=== PATIENT | male | born 1930 | race Caucasian/White ===

== ENCOUNTER → 2019-03-09 | Outpatient (CLI) | payer MEDICARE, MEDICAID | LOC: LL.DI 15:37 | PROVIDERS: ATTEND Family Medicine | DX: M25.561 Pain in right knee (principal); M25.461 Effusion, right knee; Z96.651 Presence of right artificial knee joint | CPT/HCPCS: 73560-RT ==

== ENCOUNTER 2019-03-31 11:39 | Emergency (ER) | payer OTHER ==
--- NOTE | 2019-03-31 11:52 | EDM.PDOC ---
ED HPI GENERAL MEDICAL PROBLEM - General Chief Complaint: General Stated Complaint: Critical Lab Results Time Seen by Provider: 03/31/19 11:45 Source of Information: Reports: Family (Daughter and Claudia), Assisted Records, Old Records ([facility] EMR. No paper hospital chart available.) History Limitations: Reports: Altered Mental Status - History of Present Illness INITIAL COMMENTS - FREE TEXT/NARRATIVE: The patient was brought to the emergency room via transport vehicle from [facility] in [place] for evaluation of progressive anemia since 01/28 with blood work ordered by his regular provider, Sri Reid MD at [facility] in [place]. The patient's hemoglobin was 6.7 with platelets of 111,000 and elevated INR at the detention of 6. The patient's Coumadin was put on hold yesterday with no other therapy to this point. Repeat blood work today prior to arrival to our facility showed progressive anemia with hemoglobin of 5.6, MCV 77.3, and platelets of 97,000. 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 He apparently has had some melanotic stools and mild gross hematochezia during the last month with possible progression during the last few days. He has also had some loose black stools including 3 yesterday with last bowel movement at 19:00 hours by his history. No recent history of abdominal pain, heartburn, nausea, or any food intolerance. No apparent recent chest pain or other anginal-type symptoms. The patient also denies any recent fever, cough, wheezing, dyspnea, etc.. Onset: Gradual, Other (As above) Duration: Week(s):, Getting Worse, Other (No pain) Location: Reports: Other (No pain) Improves with: Reports: None Worsens with: Reports: None Context: Reports: Other (As above). Denies: Sick Contact, Trauma Associated Symptoms: Reports: Confusion (Stable baseline). Denies: Chest Pain, Cough, Diaphoresis, Fever/Chills, Headaches, Loss of Appetite, Malaise, Nausea/ Vomiting, Rash, Shortness of Breath, Syncope, Weakness Treatments LOAD OUT PERSON: Reports: Other (see below) (None) - Related Data Allergies Allergy/AdvReac Type Severity Reaction Status Date / Time lisinopril [From Zestril] Allergy Other Verified 03/31/19 12:59 losartan Allergy Other Verified 03/31/19 12:59 propoxyphene Allergy Other Verified 03/31/19 12:59 Home Meds: Home Meds Cholecalciferol (Vitamin D3) [Vitamin D3] 2,000 unit PO DAILY@1000 02/06/17 [ History] Finasteride 5 mg PO DAILY@1000 02/06/17 [History] Gabapentin [Neurontin] 200 mg PO DAILY@,,02/06/17 [History] Methyl Salicylate/Menthol [Thera-Gesic Analgesic] 1 applic TOP BEDTIME 02/06/17 [History] Metoprolol Succinate 100 mg PO DAILY@1000 02/06/17 [History] Nitroglycerin 0.4 mg SL ASDIRECTED 02/06/17 [History] Sertraline [Zoloft] 100 mg PO BEDTIME 02/06/17 [History] Simvastatin [Zocor] 20 mg PO BEDTIME 02/06/17 [History] amLODIPine [Norvasc] 10 mg PO DAILY@1000 02/06/17 [History] predniSONE [Prednisone] 5 mg PO DAILY@1000 02/06/17 [History] traZODone 25 mg PO BEDTIME 02/06/17 [History] Diclofenac Sodium [Voltaren 1% Gel] 1 applic TOP BID@02/25/17 [History] Acetaminophen [Tylenol Extra Strength] 1,000 mg PO TID@08,14,03/31/19 [ History] Donepezil [Aricept] 5 mg PO BEDTIME 03/31/19 [History] Doxazosin [Cardura] 4 mg PO BEDTIME 03/31/19 [History] Furosemide [Lasix] 40 mg PO DAILY@1000 03/31/19 [History] Hydrocortisone [Hydrocortisone 1% Crm] 1 applic TOP ASDIRECTED PRN 03/31/19 [ History] Levothyroxine [Synthroid] 100 mcg PO DAILY@1000 03/31/19 [History] Loperamide HCl [Imodium A-D] 2 - 4 mg PO ASDIRECTED PRN MDD 8 capsules in 24 hours 03/31/19 [History] Methyl Salicylate/Menthol [Thera-Gesic Analgesic] 1 applic TOP ASDIRECTED PRN [History] Naproxen Sodium [Aleve] 220 mg PO DAILY 03/31/19 [History] Naproxen Sodium [Aleve] 220 mg PO QPM PRN 03/31/19 [History] Omeprazole 20 mg PO DAILY@1000 03/31/19 [History] Oxymetazoline [Afrin Original 0.05% Nasal [place]] 1 sprays NASBOTH ASDIRECTED PRN 03/31/19 [History] Potassium Chloride 20 meq PO BID@,03/31/19 [History] Propylene Glycol/PEG 400/Pf [Systane 0.3-0.4% Eye Drop] 1 drop EYEBOTH BID@, 20 03/31/19 [History] Propylene Glycol/PEG 400/Pf [Systane 0.3-0.4% Eye Drop] 1 drop EYEBOTH Q4H PRN 03/31/19 [History] glipiZIDE [Glucotrol] 10 mg PO DAILY@1600 03/31/19 [History] Past Medical History HEENT History: Reports: Allergic Rhinitis, Cataract, Hard of Hearing, Impaired Vision, Other (See Below) Other HEENT History: Patient wears glasses. Moderate bilateral presbycusis. Dry eye syndrome. Drusen bilaterally. Cardiovascular History: Reports: Aneurysm, Blood Clots/VTE/DVT, CAD, Cardiomyopathy, Heart Failure, High Cholesterol, Hypertension, IN, PTCA, Stents Other Cardiovascular History: Pulmonary embolism as below. Previous history of aortic dissectionlocation unknown. Gastrointestinal History: Reports: Chronic Constipation, Chronic Diarrhea, Diverticulosis, GERD, Hemorrhoids, Other (See Below) Other Gastrointestinal History: Alternating constipation and diarrhea. Diverticulosis with previous episode of diverticulitis. Dysphagia. Genitourinary History: Reports: BPH, Chronic Renal Insuffiency, Diabetic Nephropathy, Prostate Disorder, Renal Calculus, Urinary Incontinence, Other ( See Below) Other Genitourinary History: Prostate cancer as below. Musculoskeletal History: Reports: Arthritis, Back Pain, Chronic, Gout, Neck Pain , Chronic, Osteoarthritis, Other (See Below) Other Musculoskeletal History: History of spinal stenosis. Radiculopathy from arthritic disease. Neurological History: Reports: Alzheimers Disease, Neuropathy, Diabetic, Neuropathy, Peripheral, Other (See Below) Other Neuro History: Recurrent falls. Psychiatric History: Reports: Alzheimers Disease, Anxiety, Dementia, Depression , Other (See Below) Other Psychiatric History: Chronic insomnia. Endocrine/Metabolic History: Reports: Diabetes, Type II, Hypothyroidism, Obesity /BMI 30+, Vitamin D Deficiency, Other (See Below). Denies: Diabetes, Type I, Diabetes Mellitus, Type 3c, IDDM Other Endocrine/Metabolic History: Hyperkalemia. Hematologic History: Reports: Anemia, Other (See Below) Other Hematologic History: Microcytosis. Thrombocytopenia. Oncologic (Cancer) History: Reports: Prostate, Other (See Below) Other Oncologic History: Prostate cancer with probable radioactive seed therapy based on x-rays. Dermatologic History: Reports: Seborrheic Dermatitis, Other (See Below) Other Dermatologic History: Seborrheic keratosis. Actinic keratosis. Purpura. - Infectious Disease History Infectious Disease History: Reports: Chicken Pox, Measles, Mumps - Past Surgical History HEENT Surgical History: Reports: Cataract Surgery, Oral Surgery, Other (See Below) Other HEENT Surgeries/Procedures: Multiple teeth extractions with complete upper dentures and patient not having any partial lowers. Bilateral cataract surgery. Cardiovascular Surgical History: Reports: Coronary Artery Stent, Percutaneous Transluminal Angioplasty, Other (See Below) Other Cardiovascular Surgeries/Procedures: PTCA/stent 2. GI Surgical History: Reports: Other (See Below) Other GI Surgeries/Procedures: Hemorrhoidectomy by patient history. Musculoskeletal Surgical History: Reports: Hip Replacement, Joint Replacement, Knee Replacement, Other (See Below) Other Musculoskeletal Surgeries/Procedures:: Right hip TEP. Bilateral total knee arthroplasty. Multiple previous back surgeries by patient history? Social & Family History - Caffeine Use Caffeine Use: Reports: Soda ED ROS GENERAL - Review of Systems Review Of Systems: Comprehensive ROS is negative, except as noted in HPI. ED EXAM, GENERAL - Physical Exam Exam: See Below Exam Limited By: No Limitations General Appearance: Alert, WD/WN, No Apparent Distress Eye Exam: Bilateral Eye: EOMI, Normal Inspection (No nystagmus. Patient wearing glasses), PERRL Ears: Normal External Exam, Normal Canal, Normal TMs, Hearing Loss (Moderate bilateral presbycusis). No: Hearing Grossly Normal Nose: Normal Inspection, Normal Mucosa, No Blood Throat/Mouth: Normal Lips, Normal Gums, Normal Oropharynx, Normal Voice, No Airway Compromise. No: Normal Teeth (Complete Bleed absent upper dentition with multiple missing teeth lowers. Patient does not have his dentures today.), Dysphagia, Inflammation, Perioral Cyanosis Head: Atraumatic, Normocephalic. No: Facial Swelling, Facial Tenderness, Sinus Tenderness Neck: Supple, Non-Tender, Full Range of Motion, Carotid Bruit (Mild bilateral carotid bruits). No: Lymphadenopathy (L), Lymphadenopathy (R), Thyromegaly Respiratory/Chest: No Respiratory Distress, Lungs Clear, Normal Breath Sounds, No Accessory Muscle Use, Chest Non-Tender. No: Pleural Rub, Retractions Cardiovascular: Normal Peripheral Pulses, Regular Rate, Rhythm, No Gallop, No JVD, No Murmur, No Rub. No: No Edema (Dependent edema as below), Gallop/S3, Gallop/S4, Friction Rub Peripheral Pulses: 2+: Radial (L), Radial (R), Dorsalis Pedis (L), Dorsalis Pedis (R) GI/Abdominal: Non-Tender, No Organomegaly, No Abnormal Bruit, No Mass, Distended (Borderline), Abnormal Bowel Sounds (Somewhat increased, however not high-pitched). No: Guarding, Rebound, Tender, Hernia, Mass (Male) Exam: Deferred Rectal (Males) Exam: Black Stool, Bloody Stool (Mild to moderate), Heme + Stool , Hemorrhoids (Moderate grade 3 internal/external hemorrhoids), Mass (1 cm possible rectal polyp by digital exam and anoscope ). No: Rectal Fissure, Tenderness (No Ernesto space tenderness) Back Exam: Normal Inspection, Full Range of Motion, Other (Mild kyphosis). No: CVA Tenderness (L), CVA Tenderness (R), Muscle Spasm Extremities: Normal Range of Motion, Non-Tender, Normal Capillary Refill, Pedal Edema (+1-+2 bilateral pitting pedal/pretibial edema), Pallor (Moderate generalized), Other (Moderate Ecchymosis in the arms and hands bilaterally secondary to previous blood draws). No: Katy's Sign Neurological: Normal Reflexes (Negative Babinski's), Confused (Stable Baseline organic brain syndrome by history) Psychiatric: Normal Affect, Normal Mood Skin Exam: Ecchymosis, Pallor (Moderate). No: Diaphoretic, Wound/Incision Lymphatic: No Adenopathy Course - Vital Signs Last Recorded V/S: Last Vital Signs Temp 35.8 C 03/31/19 15:10 Pulse 63 03/31/19 15:10 Resp 18 03/31/19 15:10 BP 123/51 L 03/31/19 15:10 Pulse Ox 92 L 03/31/19 13:40 Vital Signs - 24 hr 03/31/19 03/31/19 03/31/19 11:46 11:48 12:15 Temperature Temperature [ 36.0 C 35.9 C Temporal] Pulse, 71 67 74 Peripheral [ Left Pulse Oximetry] Respiratory 18 18 18 Rate Blood Pressure 116/48 L 139/56 L 118/52 L [Left Upper Arm ] O2 Sat by Pulse 98 97 97 Oximetry 03/31/19 03/31/19 03/31/19 13:00 13:14 13:30 Temperature Temperature [ 35.9 C Temporal] Pulse, 68 65 60 Peripheral [ Left Pulse Oximetry] Respiratory 20 20 20 Rate Blood Pressure 128/64 130/51 L 125/51 L [Left Upper Arm ] O2 Sat by Pulse 93 L 95 88 L Oximetry 03/31/19 03/31/19 03/31/19 13:40 13:41 13:53 Temperature 36.0 C 35.9 C Temperature [ Temporal] Pulse, 62 62 64 Peripheral [ Left Pulse Oximetry] Respiratory 16 15 Rate Blood Pressure 116/45 L 103/37 L [Left Upper Arm ] O2 Sat by Pulse 92 L Oximetry 03/31/19 03/31/19 03/31/19 14:08 14:19 14:37 Temperature 36.4 C 36.4 C 35.8 C Temperature [ Temporal] Pulse, 67 65 64 Peripheral [ Left Pulse Oximetry] Respiratory 16 16 18 Rate Blood Pressure 128/47 L 131/47 L 100/54 L [Left Upper Arm ] O2 Sat by Pulse Oximetry 03/31/19 15:10 Temperature 35.8 C Temperature [ Temporal] Pulse, 63 Peripheral [ Left Pulse Oximetry] Respiratory 18 Rate Blood Pressure 123/51 L [Left Upper Arm ] O2 Sat by Pulse Oximetry - Orders/Labs/Meds Orders: Active Orders 24 hr Category Date Time Status Cardiac Monitoring [RC] . DIRECTED Care 03/31/19 11:50 Active Peripheral IV Care [RC] . DIRECTED Care 03/31/19 11:55 Active Nothing Per Oral Diet [DIET] Diet 03/31/19 Breakfast Active Abdomen Series w Chest 1V [CR] Stat Exams 03/31/19 11:55 Taken Sodium Chloride 0.9% [Normal Saline] 250 ml Med 03/31/19 13:15 Active IV ASDIRECTED Sodium Chloride 0.9% [Saline Flush] Med 03/31/19 11:55 Active 10 ml FLUSH ASDIRECTED PRN Obtain Past Medical Record [OM.PC] Urgent Oth 03/31/19 11:55 Active Peripheral IV Insertion Adult [OM.PC] Stat Oth 03/31/19 11:55 Ordered Transfuse RBC [Transfuse Red Blood Cells] [COMM] Oth 03/31/19 11:59 Ordered Routine Resuscitation Status Stat Resus Stat 03/31/19 11:55 Ordered Medication Orders Sodium Chloride (Normal Saline) 250 mls @ 50 mls/hr IV ASDIRECTED MILLA Last Admin: 03/31/19 13:38 Dose: 50 mls/hr Sodium Chloride (Saline Flush) 10 ml FLUSH ASDIRECTED PRN PRN Reason: Keep Vein Open Labs: Laboratory Tests 03/31/19 03/31/19 03/31/19 Range/Units 12:00 12:00 12:00 PT 44.5 H (9.5-12.0) SEC INR 4.1 APTT 37.8 H (21.0-31.3) SEC Sodium 144 (136-145) mmol/L Potassium 4.3 (3.5-5.1) mmol/L Chloride 107 (98-107) mmol/L Carbon Dioxide 26.3 (21.0-32.0) mmol/L BUN 32 H (7-18) mg/dL Creatinine 1.66 H (0.51-1.17) mg/dL Est Cr Clr Drug Dosing 26.76 mL/min Estimated GFR (MDRD) 39 mL/min Glucose 170 H (74-106) mg/dL Lactic Acid (0.4-2.0) mmol/L Uric Acid 10.4 H (2.6-7.2) mg/dL Calcium 8.5 (8.5-10.1) mg/dL Magnesium 1.7 L (1.8-2.4) mg/dL Total Bilirubin 0.8 (0.2-1.0) mg/dL AST 18 (15-37) U/L ALT 23 (12-78) U/L Alkaline Phosphatase 63 (46-116) IU/L Total Protein 6.2 L (6.4-8.2) g/dL Albumin 3.5 (3.4-5.0) g/dL Amylase 59 (25-115) U/L Lipase 154 (73-393) U/L Blood Type Gel Antibody Screen Crossmatch 03/31/19 03/31/19 Range/Units 12:00 12:00 PT (9.5-12.0) SEC INR APTT (21.0-31.3) SEC Sodium (136-145) mmol/L Potassium (3.5-5.1) mmol/L Chloride (98-107) mmol/L Carbon Dioxide (21.0-32.0) mmol/L BUN (7-18) mg/dL Creatinine (0.51-1.17) mg/dL Est Cr Clr Drug Dosing mL/min Estimated GFR (MDRD) mL/min Glucose (74-106) mg/dL Lactic Acid 1.9 (0.4-2.0) mmol/L Uric Acid (2.6-7.2) mg/dL Calcium (8.5-10.1) mg/dL Magnesium (1.8-2.4) mg/dL Total Bilirubin (0.2-1.0) mg/dL AST (15-37) U/L ALT (12-78) U/L Alkaline Phosphatase (46-116) IU/L Total Protein (6.4-8.2) g/dL Albumin (3.4-5.0) g/dL Amylase (25-115) U/L Lipase (73-393) U/L Blood Type O POSITIVE Gel Antibody Screen Negative Crossmatch See Detail Copies of CBC results from 03/30 and 03/31 have also been submitted. Meds: Medications Generic Name Dose Route Start Last Admin Trade Name Freq PRN Reason Stop Dose Admin Sodium Chloride 250 mls @ 50 mls/hr 03/31/19 13:15 03/31/19 13:38 Normal Saline IV 50 mls/hr ASDIRECTED MILLA Administration Sodium Chloride 10 ml 03/31/19 11:55 Saline Flush FLUSH ASDIRECTED PRN Keep Vein Open Discontinued Medications Generic Name Dose Route Start Last Admin Trade Name Freq PRN Reason Stop Dose Admin Famotidine 40 mg 03/31/19 11:55 03/31/19 12:28 Pepcid IVPUSH 03/31/19 11:56 40 mg ONETIME ONE Administration Phytonadione 10 mg/ Sodium 51 mls @ 100 mls/hr 03/31/19 11:58 03/31/19 12:10 Chloride IV 03/31/19 12:28 100 mls/hr NOW ONE Administration Pantoprazole Sodium 40 mg 03/31/19 11:55 03/31/19 12:28 Protonix Iv IVPUSH 03/31/19 11:56 40 mg ONETIME ONE Administration - Radiology Interpretation Free Text/Narrative:: youth nutritional monitor showed normal sinus rhythm with heart rate in the high 50s to 60s with no ectopy, arrhythmia, etc. Acute abdominal x-rays showed some borderline pulmonary obstructive disease with mild prominence of the proximal aortic arch but no significant CHF, cardiomegaly, pulmonary infiltrates, pneumothorax, free air, fluid levels, ileus , obstruction, etc. Moderate osteoarthritic changes and mild scoliosis noted in the spine. Mild aortic valve calcification. Status post right hip TEP. Probable radioactive seeds in the prostate. Departure - Departure Time of Disposition: 15:40 Disposition: DC/Tfer to Acute Hospital 02 Condition: Fair Clinical Impression: Lower GI bleed, Diverticulosis, Peptic reflux disease, Thrombocytopenia, Organic brain syndrome (chronic), Renal insufficiency Coronary artery disease Qualifiers: Coronary Disease-Associated Artery/Lesion type: [place] artery [place] vs. transplanted heart: [place] heart Associated angina: without angina Qualified Code(s): I25.10 - Atherosclerotic heart disease of [place] coronary artery without angina pectoris Hypertension Qualifiers: Hypertension type: essential hypertension Qualified Code(s): I10 - Essential ( primary) hypertension Osteoarthritis Qualifiers: Osteoarthritis location: multiple joints Osteoarthritis type: primary Qualified Code(s): M15.0 - Primary generalized (osteo)arthritis Diabetes mellitus Qualifiers: Diabetes mellitus type: type 2 Diabetes mellitus long-term insulin use: without long term care administrator use Diabetes mellitus complication status: with kidney complications Diabetes mellitus complication detail: with chronic kidney disease Chronic kidney disease stage: stage 3 (moderate) Qualified Code(s): E11.22 - Type 2 diabetes mellitus with diabetic chronic kidney disease - Discharge Information *PRESCRIPTION DRUG MONITORING PROGRAM REVIEWED*: Not Applicable *COPY OF PRESCRIPTION DRUG MONITORING REPORT IN PATIENT [place]: Not Applicable Referrals: Sheets-Sri Kaye MD [Primary Care Provider] - Forms: ED Department Discharge, Interfacility Transfer [facility] Sepsis Event Note - Evaluation Sepsis Screening Result: No Definite Risk - Focused Exam Vital Signs: Vital Signs Temp Temp Pulse Resp BP Pulse Ox 03/31/19 15:10 35.8 C 63 18 123/51 L 03/31/19 14:37 35.8 C 64 18 100/54 L 03/31/19 14:19 36.4 C 65 16 131/47 L 03/31/19 14:08 36.4 C 67 16 128/47 L 03/31/19 13:53 35.9 C 64 15 103/37 L 03/31/19 13:41 36.0 C 62 16 116/45 L 03/31/19 13:40 62 92 L 03/31/19 13:30 35.9 C 60 20 125/51 L 88 L 03/31/19 13:14 65 20 130/51 L 95 03/31/19 13:00 68 20 128/64 93 L 03/31/19 12:15 74 18 118/52 L 97 03/31/19 11:48 35.9 C 67 18 139/56 L 97 03/31/19 11:46 36.0 C 71 18 116/48 L 98 Date Exam was Performed: 03/31/19 Time Exam was Performed: 15:48 - Problem List & Annotations (1) Lower GI bleed SNOMED Code(s): 60134022 Code(s): K92.2 - GASTROINTESTINAL HEMORRHAGE, UNSPECIFIED Status: Acute Priority: High Current Visit: No Onset Date: ~03/30/19 Annotation/Comment: : Progressive anemia and thrombocytopenia during the last 24 hours with exact source unknown. 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 No bleeding from this site, however. Note discontinuation of Coumadin yesterday secondary to his anemia and elevated INR, however patient is also on chronic prednisone, topical Voltaren, and additional Aleve therapy. High-dose IV Pepcid and IV Protonix given as GI prophylaxis on arrival. Approval for aggressive therapy was his obtained from the patient's daughter during telephone consultation shortly after patient's arrival to this facility. Initiated high-dose IV vitamin K, 1 unit of a frozen plasma, and an additional unit of packed red blood cells during his care and subsequent transfer as below. Telephone consultation initially with the [facility] at 13:20 hours and then again at 13:[address] Rangel, hospitalist, using patient transfer secondary to the severity of the illness. Their care coordinatorr, Katerine, does approve coverage of patient transfer to [place] and for further hospitalization. Subsequent telephone consultation with [facility] at 13: 33 hours and 13:41 hours, including Dr. Mc, hospitalist, who does accept the patient for direct admission, with no further treatment recommendations given. Ambulance transfer with director of housing and energy services accompaniment. Note additional telephone consultation at 14:35 hours with his daughter and POA once again informing her of treatment plan. She wishes to discuss further interventions, including possible colonoscopy, etc. with other family members at this time. Vital Signs and clinical exam were stable at time of patient transfer. (2) Peptic reflux disease SNOMED Code(s): 548836289 Code(s): K21.9 - GASTRO-ESOPHAGEAL REFLUX DISEASE WITHOUT ESOPHAGITIS Status: Chronic Priority: Medium Current Visit: Yes Annotation/Comment:: As above. Despite chronic prednisone, Aleve, and topical chart no direct indication of upper GI bleed (3) Coronary artery disease SNOMED Code(s): 30256553 Code(s): I25.10 - ATHSCL HEART DISEASE OF [place] CORONARY ARTERY W/O ANG PCTRS Status: Chronic Priority: Medium Current Visit: Yes Annotation/ Comment:: No chest pain or anginal type symptoms. Note status post previous PTCA /stent 2. In addition, note previous history of aortic dissection with specifics unknown including type of treatment, location of aneurysm, etc. Qualifiers: Coronary Disease-Associated Artery/Lesion type: [place] artery [place] vs. transplanted heart: [place] heart Associated angina: without angina Qualified Code(s): I25.10 - Atherosclerotic heart disease of [place] coronary artery without angina pectoris (4) Diverticulosis SNOMED Code(s): 349076374 Code(s): K57.90 - DVRTCLOS OF INTEST, PART UNSP, W/O PERF OR ABSCESS W/O BLEED Status: Chronic Priority: Medium Current Visit: No Annotation/ Comment:: No history of diverticulitis, however no leukocytosis or fever at this time. Possible source of GI bleed as above? Possible rectal carcinoma as above. (5) Hypertension SNOMED Code(s): 61331811 Code(s): I10 - ESSENTIAL (PRIMARY) HYPERTENSION Status: Chronic Priority : Medium Current Visit: Yes Annotation/Comment:: Stable in the emergency room. Continue to observe closely secondary to GI bleed as above. Qualifiers: Hypertension type: essential hypertension Qualified Code(s): I10 - Essential (primary) hypertension (6) Organic brain syndrome (chronic) SNOMED Code(s): 488616542 Code(s): F09 - UNSP MENTAL DISORDER DUE TO KNOWN PHYSIOLOGICAL CONDITION Status: Chronic Priority: Medium Current Visit: No Annotation/Comment:: Stable by history. (7) Osteoarthritis SNOMED Code(s): 904927180 Code(s): M19.90 - UNSPECIFIED OSTEOARTHRITIS, UNSPECIFIED SITE Status: Chronic Priority: Medium Current Visit: Yes Annotation/Comment:: Stable by history with additional history of gout however no recent gout attacks. Qualifiers: Osteoarthritis location: multiple joints Osteoarthritis type: primary Qualified Code(s): M15.0 - Primary generalized (osteo)arthritis (8) Thrombocytopenia SNOMED Code(s): 111572581 Code(s): D69.6 - THROMBOCYTOPENIA, UNSPECIFIED Status: Acute Priority: High Current Visit: No Onset Date: ~03/30/19 Annotation/Comment:: As above (9) Diabetes mellitus SNOMED Code(s): 87190239 Code(s): E11.9 - TYPE 2 DIABETES MELLITUS WITHOUT COMPLICATIONS Status: Chronic Priority: Medium Current Visit: Yes Annotation/Comment:: Stable by history. Qualifiers: Diabetes mellitus type: type 2 Diabetes mellitus long term care administrator insulin use: without long term care administrator use Diabetes mellitus complication status: with kidney complications Diabetes mellitus complication detail: with chronic kidney disease Chronic kidney disease stage: stage 3 (moderate) Qualified Code(s): E11.22 - Type 2 diabetes mellitus with diabetic chronic kidney disease; N18.3 - Chronic kidney disease, stage 3 (moderate) (10) Renal insufficiency SNOMED Code(s): 989578292, 610906843 Code(s): N28.9 - DISORDER OF KIDNEY AND URETER, UNSPECIFIED Status: Chronic Priority: Medium Current Visit: Yes Annotation/Comment:: Stable per review of previous medical records. Note diabetic nephropathy. - Problem List Review Problem List Initiated/Reviewed/Updated: Yes - My Orders Last 24 Hours: My Active Orders 03/31/19 11:50 Cardiac Monitoring [RC] . DIRECTED 03/31/19 11:55 Peripheral IV Care [RC] . DIRECTED Abdomen Series w Chest 1V [CR] Stat Sodium Chloride 0.9% [Saline Flush] 10 ml FLUSH ASDIRECTED PRN Obtain Past Medical Record [OM.PC] Urgent Peripheral IV Insertion Adult [OM.PC] Stat Resuscitation Status Stat 03/31/19 11:59 Transfuse RBC [Transfuse Red Blood Cells] [COMM] Routine 03/31/19 13:15 Sodium Chloride 0.9% [Normal Saline] 250 ml IV ASDIRECTED 03/31/19 Breakfast Nothing Per Oral Diet [DIET] - Assessment/Plan Last 24 Hours: My Active Orders 03/31/19 11:50 Cardiac Monitoring [RC] . DIRECTED 03/31/19 11:55 Peripheral IV Care [RC] . DIRECTED Abdomen Series w Chest 1V [CR] Stat Sodium Chloride 0.9% [Saline Flush] 10 ml FLUSH ASDIRECTED PRN Obtain Past Medical Record [OM.PC] Urgent Peripheral IV Insertion Adult [OM.PC] Stat Resuscitation Status Stat 03/31/19 11:59 Transfuse RBC [Transfuse Red Blood Cells] [COMM] Routine 03/31/19 13:15 Sodium Chloride 0.9% [Normal Saline] 250 ml IV ASDIRECTED 03/31/19 Breakfast Nothing Per Oral Diet [DIET] Assessment:: As above. Plan: As above. Extensive precautions were given to the patient and his daughter, who are in agreement with the treatment plan. Ambulance transfer with director of housing and energy services accompaniment as above.
[2019-03-31] MEDS ORDERED: Sodium Chloride 0.9% 10 ML Syringe FLUSH PRN (11:55)
[2019-03-31] MEDS: Phytonadione 10 MG in Sodium Chloride 0.9% 50 ML IV ONE (12:10)
[2019-03-31] MEDS: Famotidine 20 MG/2 ML SDV IVPUSH ONE (12:28)
[2019-03-31] MEDS: Pantoprazole 40 MG Vial IVPUSH ONE (12:28)
[2019-03-31] MEDS: Sodium Chloride 0.9% 250 ML IV SCH (13:38)
[2019-03-31 15:56] VITALS: BP 120/62; PULSE 66
== END 2019-03-31 15:40 ==
LOC: LL.ED 11:39
DX: K92.2 Gastrointestinal hemorrhage, unspecified (principal); E11.22 Type 2 diabetes mellitus with diabetic chronic kidney disease; I13.0 Hypertensive heart and chronic kidney disease with heart failure and stage 1 through stage 4 chronic kidney disease, or unspecified chronic kidney disease; N18.3 Chronic kidney disease, stage 3 (moderate); D63.1 Anemia in chronic kidney disease; I25.10 Atherosclerotic heart disease of native coronary artery without angina pectoris; D69.6 Thrombocytopenia, unspecified; K21.9 Gastro-esophageal reflux disease without esophagitis; F09 Unspecified mental disorder due to known physiological condition; M15.0 Primary generalized (osteo)arthritis; E11.21 Type 2 diabetes mellitus with diabetic nephropathy; E03.9 Hypothyroidism, unspecified; E66.9 Obesity, unspecified; I25.2 Old myocardial infarction; Z79.899 Other long term (current) drug therapy; Z88.8 Allergy status to other drugs, medicaments and biological substances
CPT/HCPCS: 36415; 36430; 74022; 80053; 82150; 82272; 83605; 83690; 83735; 84550; 85610; 85730; 86850; 86900; 86901; 86920; 86922; 96361; 96365; 96375; 99285-25; C9113; J3430; J3490; J7050; P9016; P9017

== ENCOUNTER 2020-04-16 20:55 | Emergency (ER) | payer MEDICARE, MEDICAID ==
[2020-04-16 22:17] VITALS: PULSE 83
--- NOTE | 2020-04-16 22:27 | EDM.PDOC ---
ED HPI GENERAL MEDICAL PROBLEM - General Chief Complaint: Respiratory Problem Stated Complaint: chills, hypoxia Time Seen by Provider: 04/16/20 21:28 Source of Information: Reports: Patient, Other ([facility] staff) History Limitations: Reports: Other (hard of hearing, crabby/short tempered) - History of Present Illness INITIAL COMMENTS - FREE TEXT/NARRATIVE: Patient sent here from [facility] to be evaluated. Staff report decreased energy for two days. O2 sats 89% (patient not on O2 at [facility]). He complained of feeling cold/chilled. Questionable if there is actual SOB complaint. Patient denied it twice but said once during ROS that he was SOB. Mild cough. No other obvious changes reported to us. Patient is unhappy that he is here and did not want to come to ER. No other reported changes during ROS. Transported on O2. Oxygen sats above 90% on 1 L of oxygen. Negative Covid test from Apr 14. 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: EKG, IV/IO, Oxygen - Related Data Allergies Allergy/AdvReac Type Severity Reaction Status Date / Time lisinopril [From Zestril] Allergy Other Verified 04/16/20 21:59 losartan Allergy Other Verified 04/16/20 21:59 propoxyphene Allergy Other Verified 04/16/20 21:59 Home Meds: Home Meds Cholecalciferol (Vitamin D3) [Vitamin D3] 2,000 unit PO DAILY@1000 02/06/17 [History] Finasteride 5 mg PO DAILY@1000 02/06/17 [History] Gabapentin [Neurontin] 400 mg PO DAILY@,,20 02/06/17 [History] Methyl Salicylate/Menthol [Thera-Gesic Analgesic] 1 applic TOP BEDTIME 02/06/17 [History] Metoprolol Succinate 100 mg PO DAILY@1000 02/06/17 [History] Nitroglycerin 0.4 mg SL ASDIRECTED 02/06/17 [History] Sertraline [Zoloft] 100 mg PO DAILY 02/06/17 [History] Simvastatin [Zocor] 20 mg PO BEDTIME 02/06/17 [History] amLODIPine [Norvasc] 10 mg PO DAILY@1000 02/06/17 [History] predniSONE [Prednisone] 5 mg PO DAILY@1000 02/06/17 [History] traZODone 50 mg PO BEDTIME 02/06/17 [History] Diclofenac Sodium [Voltaren 1% Gel] 1 applic TOP BID@02/25/17 [History] Acetaminophen [Tylenol Extra Strength] 1,000 mg PO TID@08,,03/31/19 [History] Donepezil [Aricept] 5 mg PO BEDTIME 03/31/19 [History] Doxazosin [Cardura] 4 mg PO BEDTIME 03/31/19 [History] Furosemide [Lasix] 40 mg PO DAILY@1000 03/31/19 [History] Loperamide HCl [Imodium A-D] 2 - 4 mg PO ASDIRECTED PRN MDD 8 capsules in 24 hours 03/31/19 [History] Methyl Salicylate/Menthol [Thera-Gesic Analgesic] 1 applic TOP ASDIRECTED PRN 03/31/19 [History] Omeprazole 20 mg PO DAILY@1000 03/31/19 [History] Oxymetazoline [Afrin Original 0.05% Nasal [place]] 1 sprays NASBOTH ASDIRECTED PRN 03/31/19 [History] Potassium Chloride 20 meq PO BID@03/31/19 [History] glipiZIDE [Glucotrol] 10 mg PO DAILY@1600 03/31/19 [History] Allopurinol [Zyloprim] 100 mg PO DAILY 04/16/20 [History] Ferrous Sulfate 1 tab PO DAILY 04/16/20 [History] Levothyroxine 112 mcg PO DAILY 04/16/20 [History] Melatonin 3 mg PO DAILY 04/16/20 [History] Methyl Salicylate/Menth/Camph [Salonpas 3.1%-6.0%-10.0% Patch] 1 patch TOP DAILY 04/16/20 [History] Past Medical History HEENT History: Reports: Allergic Rhinitis, Cataract, Hard of Hearing, Impaired Vision, Other (See Below) Other HEENT History: Patient wears glasses. Moderate bilateral presbycusis. Dry eye syndrome. Drusen bilaterally. Cardiovascular History: Reports: Aneurysm, Blood Clots/VTE/DVT, CAD, Cardiomyopathy, Heart Failure, High Cholesterol, Hypertension, MO, PTCA, Stents Other Cardiovascular History: Pulmonary embolism as below. Previous history of aortic dissectionlocation unknown. Respiratory History: Reports: SOB Gastrointestinal History: Reports: Chronic Constipation, Chronic Diarrhea, Diverticulosis, GERD, Hemorrhoids, Other (See Below) Other Gastrointestinal History: Alternating constipation and diarrhea. Diverticulosis with previous episode of diverticulitis. Dysphagia. Genitourinary History: Reports: BPH, Chronic Renal Insuffiency, Diabetic Nephropathy, Prostate Disorder, Renal Calculus, Urinary Incontinence, Other (See Below) Other Genitourinary History: Prostate cancer as below. Musculoskeletal History: Reports: Arthritis, Back Pain, Chronic, Gout, Neck Pain, Chronic, Osteoarthritis, Other (See Below) Other Musculoskeletal History: History of spinal stenosis. Radiculopathy from arthritic disease. Neurological History: Reports: Alzheimers Disease, Neuropathy, Diabetic, Neuropathy, Peripheral, Other (See Below) Other Neuro History: Recurrent falls. Psychiatric History: Reports: Alzheimers Disease, Anxiety, Dementia, Depression, Other (See Below) Other Psychiatric History: Chronic insomnia. Endocrine/Metabolic History: Reports: Diabetes, Type II, Hypothyroidism, Obesity/BMI 30+, Vitamin D Deficiency, Other (See Below) Other Endocrine/Metabolic History: Hyperkalemia. Hematologic History: Reports: Anemia, Other (See Below) Other Hematologic History: Microcytosis. Thrombocytopenia. Oncologic (Cancer) History: Reports: Prostate, Other (See Below) Other Oncologic History: Prostate cancer with probable radioactive seed therapy based on x-rays. Dermatologic History: Reports: Seborrheic Dermatitis, Other (See Below) Other Dermatologic History: Seborrheic keratosis. Actinic keratosis. Purpura. - Infectious Disease History Infectious Disease History: Reports: Chicken Pox, Measles, Mumps - Past Surgical History HEENT Surgical History: Reports: Cataract Surgery, Oral Surgery, Other (See Below) Other HEENT Surgeries/Procedures: Multiple teeth extractions with complete upper dentures and patient not having any partial lowers. Bilateral cataract surgery. Cardiovascular Surgical History: Reports: Coronary Artery Stent, Percutaneous Transluminal Angioplasty, Other (See Below) Other Cardiovascular Surgeries/Procedures: PTCA/stent 2. Respiratory Surgical History: Reports: None GI Surgical History: Reports: Other (See Below) Other GI Surgeries/Procedures: Hemorrhoidectomy by patient history. Musculoskeletal Surgical History: Reports: Hip Replacement, Joint Replacement, Knee Replacement, Other (See Below) Other Musculoskeletal Surgeries/Procedures:: Right hip TEP. Bilateral total knee arthroplasty. Multiple previous back surgeries by patient history? Social & Family History - Tobacco Use Tobacco Use Status *Q: Former Tobacco User Used Tobacco, but Quit: Yes Month/Year Tobacco Last Used: 1969 - Caffeine Use Caffeine Use: Reports: Soda ED ROS GENERAL - Review of Systems Review Of Systems: See Below Constitutional: Reports: Chills, Fatigue, Decreased Appetite. Denies: Fever, Malaise, Night Sweats, Diaphoresis HEENT: Denies: Rhinitis, Sinus Problem, Throat Pain, Throat Swelling, Vertigo, Vision Change Respiratory: Reports: Shortness of Breath, Cough (mild). Denies: Wheezing, Pleuritic Chest Pain, Sputum, Hemoptysis Cardiovascular: Denies: Chest Pain, Dyspnea on Exertion, Edema, Lightheadedness, Orthopnea, Palpitations, Syncope GI/Abdominal: Reports: Decreased Appetite. Denies: Abdominal Pain, Constipation, Diarrhea, Difficulty Swallowing, Distension, Melena, Nausea, Vomiting : Reports: No Symptoms Musculoskeletal: Reports: Other (no acute changes from baseline. He does complain of persistent left hip pain. [facility] but [facility] staff dispute this. Patient admits to being up and walking today without much i ssue however) Skin: Denies: Wound Neurological: Denies: Confusion, Dizziness, Headache, Numbness, Paresthesia, Seizure, Syncope, Change in Speech, Gait Disturbance Psychiatric: Reports: No Symptoms ED EXAM, GENERAL - Physical Exam Exam: See Below Exam Limited By: No Limitations General Appearance: Alert, No Apparent Distress, Obese Eye Exam: Bilateral Eye: EOMI, PERRL Ears: Normal External Exam, Hearing Grossly Normal Nose: No: Nasal Deformity, Nasal Swelling, Nasal Drainage, Nasal Flaring Throat/Mouth: Normal Lips, Normal Voice, No Airway Compromise Head: Atraumatic, Normocephalic Neck: Supple, Non-Tender, Full Range of Motion Respiratory/Chest: No Respiratory Distress, No Accessory Muscle Use, Chest Non- Tender, Decreased Breath Sounds (throughout), Rales (minimal/bases). No: Rhonchi, Wheezing, Stridor, Pleural Rub, Accessory Muscle Use, Retractions, Prolonged Expiration Cardiovascular: Regular Rate, Rhythm, No Edema, No Murmur GI/Abdominal: Normal Bowel Sounds, Soft, Other (some tenderness LLQ, large obese abdomen). No: Guarding, Rigid, Rebound (Male) Exam: Deferred Rectal (Males) Exam: Deferred Back Exam: No: CVA Tenderness (L), CVA Tenderness (R), Muscle Spasm Extremities: Non-Tender, Normal Capillary Refill Neurological: Alert, Oriented, Other (equal tone) Psychiatric: Other (crabby) Skin Exam: Warm, Dry, Intact, Normal Color #1 Interpretation EKG Date: 04/16/20 Time: 21:22 Rhythm: NSR Rate (Beats/Min): 86 Mcpherson: Normal P-Wave: Present QRS: RBBB ST-T: Other (flipped Ts noted multiple leads) QT: Normal Comparison: Other: (EKG in 2017 did not show right BBB) Course - Vital Signs Last Recorded V/S: Last Vital Signs Temp 36.9 C 04/16/20 21:16 Pulse 83 04/16/20 22:16 Resp 24 H 04/16/20 22:16 BP 119/55 L 04/16/20 22:16 Pulse Ox 93 L 04/16/20 22:16 - Orders/Labs/Meds Orders: Active Orders 24 hr Category Date Time Status EKG Documentation Completion [RC] ASDIRECTED Care 04/16/20 21:17 Active Abdomen 1V Flat [CR] Stat Exams 04/16/20 21:42 Ordered Chest 1V Frontal [CR] Stat Exams 04/16/20 21:01 Taken CULTURE BLOOD [BC] Stat Lab 04/16/20 21:10 Received CULTURE BLOOD [BC] Stat Lab 04/16/20 21:20 Received CULTURE URINE [RM] Stat Lab 04/16/20 22:50 Received HEPATITIS PANEL (4) [REF] Routine Lab 04/16/20 22:16 Ordered UA W/MICROSCOPIC [URIN] Stat Lab 04/16/20 22:50 Results Blood Culture x2 Reflex Set [OM.PC] Stat Oth 04/16/20 21:01 Ordered Labs: Laboratory Tests 04/16/20 04/16/20 04/16/20 Range/Units 21:10 21:10 21:10 WBC 4.6 (4.0-10.2) K/uL RBC 4.10 L (4.33-5.41) M/uL Hgb 13.1 (13.1-16.8) g/dL Hct 40.6 (39.0-49.0) % MCV 99.0 H (84.0-98.0) fL MCH 32.0 (28.2-33.3) pg MCHC 32.3 (31.7-36.0) g/dL RDW 14.9 H (11.2-14.1) % Plt Count 69 L (150-350) K/uL Neut % (Auto) 95.0 H (45.0-80.0) % Lymph % (Auto) 2.4 L (10.0-50.0) % Dunn % (Auto) 2.0 (2.0-14.0) % Eos % (Auto) 0.4 (0.0-5.0) % Baso % (Auto) 0.2 (0.0-2.0) % Neut # (Auto) 4.34 (1.40-7.00) K/uL Lymph # (Auto) 0.11 L (0.50-3.50) K/uL Dunn # (Auto) 0.09 (0.00-1.00) K/uL Eos # (Auto) 0.02 (0.00-0.50) K/uL Baso # (Auto) 0.01 (0.00-0.20) K/uL D-Dimer, Quantitative 1580 H (0-400) ng/mL Sodium 140 (136-145) mmol/L Potassium 4.5 (3.5-5.1) mmol/L Chloride 105 (98-107) mmol/L Carbon Dioxide 23.0 (21.0-32.0) mmol/L BUN 34 H (7-18) mg/dL Creatinine 1.66 H (0.51-1.17) mg/dL Est Cr Clr Drug Dosing 26.24 mL/min Estimated GFR (MDRD) 39 mL/min Glucose 162 H (74-106) mg/dL Lactic Acid (0.4-2.0) mmol/L Calcium 8.8 (8.5-10.1) mg/dL Magnesium 1.9 (1.8-2.4) mg/dL Total Bilirubin 1.6 H (0.2-1.0) mg/dL AST 115 H (15-37) U/L ALT 115 H (12-78) U/L Alkaline Phosphatase 139 H (46-116) IU/L Troponin I (0.000-0.056) ng/mL Total Protein 6.4 (6.4-8.2) g/dL Albumin 3.2 L (3.4-5.0) g/dL Urine Color Urine Appearance Urine pH (5.0-9.0) Ur Specific [place] (1.005-1.030) Urine Protein (NEGATIVE) mg/dL Urine Glucose (UA) (NEGATIVE) mg/dL Urine Ketones (NEGATIVE) mg/dL Urine Occult Blood (NEGATIVE) Urine Nitrite (NEGATIVE) Urine Bilirubin (NEGATIVE) Urine Urobilinogen (0.2-1.0) E.U./dL Ur Leukocyte Esterase (NEGATIVE) 04/16/20 04/16/20 04/16/20 Range/Units 21:10 21:10 22:50 WBC (4.0-10.2) K/uL RBC (4.33-5.41) M/uL Hgb (13.1-16.8) g/dL Hct (39.0-49.0) % MCV (84.0-98.0) fL MCH (28.2-33.3) pg MCHC (31.7-36.0) g/dL RDW (11.2-14.1) % Plt Count (150-350) K/uL Neut % (Auto) (45.0-80.0) % Lymph % (Auto) (10.0-50.0) % Dunn % (Auto) (2.0-14.0) % Eos % (Auto) (0.0-5.0) % Baso % (Auto) (0.0-2.0) % Neut # (Auto) (1.40-7.00) K/uL Lymph # (Auto) (0.50-3.50) K/uL Dunn # (Auto) (0.00-1.00) K/uL Eos # (Auto) (0.00-0.50) K/uL Baso # (Auto) (0.00-0.20) K/uL D-Dimer, Quantitative (0-400) ng/mL Sodium (136-145) mmol/L Potassium (3.5-5.1) mmol/L Chloride (98-107) mmol/L Carbon Dioxide (21.0-32.0) mmol/L BUN (7-18) mg/dL Creatinine (0.51-1.17) mg/dL Est Cr Clr Drug Dosing mL/min Estimated GFR (MDRD) mL/min Glucose (74-106) mg/dL Lactic Acid 2.5 H (0.4-2.0) mmol/L Calcium (8.5-10.1) mg/dL Magnesium (1.8-2.4) mg/dL Total Bilirubin (0.2-1.0) mg/dL AST (15-37) U/L ALT (12-78) U/L Alkaline Phosphatase (46-116) IU/L Troponin I 0.012 (0.000-0.056) ng/mL Total Protein (6.4-8.2) g/dL Albumin (3.4-5.0) g/dL Urine Color Dark yellow Urine Appearance Cloudy Urine pH 5.0 (5.0-9.0) Ur Specific [place] 1.020 (1.005-1.030) Urine Protein 100 H (NEGATIVE) mg/dL Urine Glucose (UA) Negative (NEGATIVE) mg/dL Urine Ketones Negative (NEGATIVE) mg/dL Urine Occult Blood Large H (NEGATIVE) Urine Nitrite Positive H (NEGATIVE) Urine Bilirubin Negative (NEGATIVE) Urine Urobilinogen 0.2 (0.2-1.0) E.U./dL Ur Leukocyte Esterase Moderate H (NEGATIVE) - Radiology Interpretation Free Text/Narrative:: Chest xray/abdominal film performed. Questionable minimal infiltrate RLL but overall it does appear clear. No obvious fluid overload. No evidence of obstruction in abdomen. Pelvis appears intact. Left proximal femur appears intact. Has right hip prothesis. - Re-Assessments/Exams Free Text/Narrative Re-Assessment/Exam: 04/16/20 22:43 Patient rested comfortably while labs performed. O2 sats low 90s on 1L [place]. Afebrile. VSS. Normal WBC. Normal Hgb. Platelets diminished at 69 DDimer elevated 1580 Creatinine elevated 1.66 Patient has history of chronic renal insufficiency. Lactic acid 2.5 No evidence of acute infection/sepsis identified. Pending blood cultures. LFTs elevated, AST and ALT 115, Alk phos 139, mildly elevated total Bili. Troponin negative Hepatitis panel added to labs. Patient made it clear that he wanted to back to [facility]. He does have risk of PE despite thrombocytopenia. He refused to consider scanning for PE, denied feeling SOB. He would likely need VQ scan given his renal dysfunction. Ultimately it was decided to send him back to [facility]. Urine obtained right when patient's ride came to the hospital. Earlier he had refused to give a sample and plan was to have it collected at [facility] and brought here for our lab. He does have the new elevation in LFTs along with minimal increase in lactic acid. He may have mild pneumonia right lower lung. Cannot rule out developing viral illness which could cause increased LFTs. Again, his covid test from several days ago was negative. Plan at this time is to start patient on Doxy and have him followed up on [place] rounds in two days/be rechecked. Depending on how things are going he may need further evaluation such as an US study of the liver/gallbladder area if any pain develops or LFTs worsen. [facility] will be contacted if any abnormalities noted when UA samples finalized. 04/16/20 23:09 UA showed UTI. [facility] contacted and orders given for 1gm IM Rocephin Q24 starting tonight. Will not have patient start Doxy. To follow up with [facility] Saturday. UC pending. Once results available patient can be switched to oral antibiotics. Departure - Departure Time of Disposition: 22:45 Disposition: DC/Tfer to [facility] 03 Condition: Good Clinical Impression: Elevated LFTs UTI (urinary tract infection) Qualifiers: Urinary tract infection type: site unspecified Hematuria presence: without hematuria Qualified Code(s): N39.0 - Urinary tract infection, site not specified - Discharge Information *PRESCRIPTION DRUG MONITORING PROGRAM REVIEWED*: Not Applicable *COPY OF PRESCRIPTION DRUG MONITORING REPORT IN PATIENT BRISEIDA: Not Applicable Forms: ED Department Discharge Additional Instructions: Start Rocephin 1gm IM q24 hours. First injection tonight. Observe for any new symptoms/changes over the weekend. Have patient followed up Saturday on rounds by regular provider. If you have sudden worsening problems, return to ER. Give oxygen NC 1--4L to keep O2 levels between 90-95% It was noticed that his liver functions were elevated tonight. This could be due to a viral illness. He did not have any pain with palpation in that area however. We did order a hepatitis panel. If enzymes remain elevated and/or pain develops in area then additional imaging will be needed such as an US study or even CT. We discussed the elevated DDimer and how it can flag for a pulmonary embolism. Patient does have low platelets, which makes him less likely to form clots. He informed us tonight that he does not want to be scanned for a PE or sent to [place] for a VQ scan. He made it clear he would like to return to the [facility]. Jus t pass along to the provider that the DDimer was elevated and if shortness of breath worsens patient will need to decide if he is willing to be checked for PE. Again, he will likely have to go to [place] for a VQ given his slow kidneys. Sepsis Event Note (ED) - Evaluation Sepsis Screening Result: No Definite Risk - Focused Exam Vital Signs: Vital Signs Temp Pulse Resp BP Pulse Ox 04/16/20 22:16 83 24 H 119/55 L 93 L 04/16/20 21:16 36.9 C 88 16 122/53 L 92 L - My Orders Last 24 Hours: My Active Orders 04/16/20 21:01 Chest 1V Frontal [CR] Stat Blood Culture x2 Reflex Set [OM.PC] Stat 04/16/20 21:10 CULTURE BLOOD [BC] Stat 04/16/20 21:17 EKG Documentation Completion [RC] ASDIRECTED 04/16/20 21:20 CULTURE BLOOD [BC] Stat 04/16/20 21:42 Abdomen 1V Flat [CR] Stat 04/16/20 22:16 HEPATITIS PANEL (4) [REF] Routine 04/16/20 22:50 CULTURE URINE [RM] Stat UA W/MICROSCOPIC [URIN] Stat - Assessment/Plan Last 24 Hours: My Active Orders 04/16/20 21:01 Chest 1V Frontal [CR] Stat Blood Culture x2 Reflex Set [OM.PC] Stat 04/16/20 21:10 CULTURE BLOOD [BC] Stat 04/16/20 21:17 EKG Documentation Completion [RC] ASDIRECTED 04/16/20 21:20 CULTURE BLOOD [BC] Stat 04/16/20 21:42 Abdomen 1V Flat [CR] Stat 04/16/20 22:16 HEPATITIS PANEL (4) [REF] Routine 04/16/20 22:50 CULTURE URINE [RM] Stat UA W/MICROSCOPIC [URIN] Stat
[2020-04-16 23:09] VITALS: BP 115/56
== END 2020-04-16 22:50 ==
LOC: LL.ED 20:55
DX: N39.0 Urinary tract infection, site not specified (principal); R79.89 Other specified abnormal findings of blood chemistry; I25.10 Atherosclerotic heart disease of native coronary artery without angina pectoris; E78.00 Pure hypercholesterolemia, unspecified; I25.2 Old myocardial infarction; K21.9 Gastro-esophageal reflux disease without esophagitis; I13.0 Hypertensive heart and chronic kidney disease with heart failure and stage 1 through stage 4 chronic kidney disease, or unspecified chronic kidney disease; N18.9 Chronic kidney disease, unspecified; I50.9 Heart failure, unspecified; E11.21 Type 2 diabetes mellitus with diabetic nephropathy; M10.9 Gout, unspecified; E11.42 Type 2 diabetes mellitus with diabetic polyneuropathy; E11.22 Type 2 diabetes mellitus with diabetic chronic kidney disease; N40.0 Benign prostatic hyperplasia without lower urinary tract symptoms; G30.9 Alzheimer's disease, unspecified; F32.9 Major depressive disorder, single episode, unspecified; F02.80 Dementia in other diseases classified elsewhere, unspecified severity, without behavioral disturbance, psychotic disturbance, mood disturbance, and anxiety; E03.9 Hypothyroidism, unspecified; E66.9 Obesity, unspecified; Z87.891 Personal history of nicotine dependence; Z88.8 Allergy status to other drugs, medicaments and biological substances; Z95.5 Presence of coronary angioplasty implant and graft; Z79.899 Other long term (current) drug therapy
CPT/HCPCS: 36415; 71045; 74018; 80053; 80074; 81001; 83605; 83735; 84484; 85025; 85379; 87040; 87077; 87086; 87088; 87186; 93005; 99285-25